=== PATIENT | female | born 1985 | race Caucasian/White ===

== ENCOUNTER 2017-11-12 10:25 | Emergency (ER) | payer BC ==
[~2017-11-12] VITALS: Ht 165.1 cm; Wt 80.0 kg
[2017-11-12] MEDS ORDERED: SERT50TA PO (11:02)
[2017-11-12] MEDS ORDERED: OXYMETAZOLINE NASAL SPRAY 0.05%, 15ML ONE (11:21)
[2017-11-12] MEDS ORDERED: SODIUM CHLORIDE 0.9% 1,000ML IVBOLUS ONE (11:30)
[2017-11-12] MEDS ORDERED: HYDROmorphone 1 MG/ML, 1ML IV ONE ×2 (11:30→12:30)
[2017-11-12] MEDS ORDERED: SODIUM CHLORIDE FLUSH 10ML SYR IVF ONE (11:30)
[2017-11-12] MEDS ORDERED: ONDANSETRON 2MG/ML, 2ML IVPush ONE (11:30)
[2017-11-12] MEDS ORDERED: ONDANSETRON 2MG/ML, 2ML ONE (11:31)
[2017-11-12] MEDS ORDERED: HYDROmorphone 2 MG/ML, 1ML ONE ×2 (11:31→12:25)
[2017-11-12 11:41] LABS: HEMATOCRIT 41.5 % (34.6-47.8); HEMOGLOBIN 14.2 g/dL (11.7-16.4); WHITE BLOOD COUNT 10.6 x10^3/uL (3.4-10)
[2017-11-12 11:54] LABS: BLOOD UREA NITROGEN 11 mg/dL (7-18)
[2017-11-12 11:59] LABS: ASPARTATE AMINO TRANSFERASE 20 U/L (15-37)
[2017-11-12] MEDS ORDERED: KETOROLAC 30 MG/1 ML ONE (13:19)
[2017-11-12] MEDS ORDERED: KETOROLAC 30 MG/1 ML IVPush ONE (13:30)
[2017-11-12] MEDS ORDERED: OMNIPAQUE 350 MG/ML, 100ML BOTTLE ONE (13:44)
[2017-11-12 14:11] VITALS: BP 139/98
== END 2017-11-12 14:14 | disposition home or self-care (01) ==
LOC: ED 13:48
DX: R10.2 Pelvic and perineal pain (principal)
CPT/HCPCS: 36415; 74177; 76830; 80053; 81003; 84703; 85025; 96361; 96374; 96375; 96376; 99285; J1170; J1885; J2405; J7030; Q9967

== ENCOUNTER 2017-12-08 11:27 | Day surgery (SDC) | payer OTHER ==
[~2017-12-08] VITALS: Ht 165.1 cm; Wt 79.5 kg
[~2017-12-08 11:27] MED LIST: BUPIVACAINE/PF 0.25% ONE; EPINEPHRINE 1 MG/ML, 1ML ONE; SERT50TA PO
[2017-12-08] MEDS ORDERED: AMIT10TA PO (11:58)
[2017-12-08] MEDS ORDERED: ARIP5TAB13 PO (11:58)
[2017-12-08] MEDS ORDERED: HYDR1TAB12 PO (11:58)
[2017-12-08] MEDS ORDERED: TRAM50TA2 PO (11:58)
[2017-12-08 12:10] VITALS: BP 127/89
[2017-12-08] MEDS ORDERED: LACTATED RINGERS 1,000 ML IV SCH (12:16)
[2017-12-08] MEDS ORDERED: LIDOCAINE-MPF 2% ,5ML ONE ×2 (12:56)
[2017-12-08] MEDS ORDERED: MIDAZOLAM 1 MG/ML, 2ML ONE ×2 (12:56→14:34)
[2017-12-08] MEDS ORDERED: PROPOFOL 10 MG/ML, 20ML ONE (12:57)
[2017-12-08] MEDS ORDERED: CEFAZOLIN 1,000 MG ONE ×2 (12:59)
[2017-12-08] MEDS ORDERED: ROCURONIUM 10 MG/ML,10ML ONE (13:04)
[2017-12-08] MEDS ORDERED: FENTANYL PF 250 MCG/5ML ONE (13:14)
[2017-12-08] MEDS ORDERED: ONDANSETRON 2MG/ML, 2ML IVPush PRN ×2 (13:30→16:00)
[2017-12-08] MEDS ORDERED: KETOROLAC 30 MG/1 ML IV PRN (13:30)
[2017-12-08] MEDS ORDERED: MEPERIDINE/PF 25MG/0.5ML IVPush PRN (13:30)
[2017-12-08] MEDS ORDERED: DEXAMETHASONE 4 MG/ML, 1ML ONE ×3 (13:35)
[2017-12-08] MEDS ORDERED: ONDANSETRON 2MG/ML, 2ML ONE ×2 (13:35→14:27)
[2017-12-08] MEDS ORDERED: LABETALOL 5MG/ML, 20ML ONE (13:40)
[2017-12-08] MEDS ORDERED: GLYCOPYRROLATE 0.4 MG/2 ML, 2ML ONE ×2 (13:44)
[2017-12-08] MEDS ORDERED: NEOSTIGMINE 1 MG/ML, 10ML ONE (13:44)
[2017-12-08] MEDS ORDERED: HYDROmorphone 2 MG/ML, 1ML ONE (14:08)
[2017-12-08] MEDS ORDERED: FENTANYL PF 100 MCG/2ML ONE (14:08)
[2017-12-08] MEDS: FENTANYL PF 100 MCG/2ML IV PRN ×2 (14:10→14:20)
[2017-12-08] MEDS: HYDROmorphone 1 MG/ML, 1ML IV PRN ×4 (14:15→14:41)
[2017-12-08] MEDS: MIDAZOLAM 1 MG/ML, 2ML IV PRN ×2 (14:35→14:40)
[2017-12-08] MEDS ORDERED: IBUPROFEN 600 MG TABLET ONE (15:44)
[2017-12-08] MEDS ORDERED: OXYcodone/APAP 5/325MG TABLET ONE (15:44)
[2017-12-08] MEDS ORDERED: HYDROmorphone 2 MG/ML, 1ML IVPush PRN (16:00)
[2017-12-08] MEDS ORDERED: OXYcodone/APAP 5/325MG TABLET PO PRN (16:00)
[2017-12-08] MEDS ORDERED: IBUPROFEN 600 MG TABLET PO SCH (16:00)
== END 2017-12-08 18:00 ==
LOC: OUT 11:27
PROVIDERS: ATTEND Obstetrics & Gynecology Female Pelvic Medicine and Reconstructive Surgery
DX: N92.1 Excessive and frequent menstruation with irregular cycle (principal); N94.6 Dysmenorrhea, unspecified; N80.9 Endometriosis, unspecified; F41.9 Anxiety disorder, unspecified; Z88.6 Allergy status to analgesic agent; Z98.890 Other specified postprocedural states; Z91.040 Latex allergy status
CPT/HCPCS: 58552; 88307; J0171; J0690; J1100; J1170; J2250; J2405; J2704; J2710; J3010; J3490; J7120